=== PATIENT | male | born 1990 | race Caucasian/White ===

== ENCOUNTER 2017-03-01 10:17 | Emergency (ER) | payer OTHER ==
[~2017-03-01] VITALS: Ht 167.6 cm; Wt 60.0 kg
[2017-03-01 10:36] VITALS: BP 127/81; PULSE 108; RESP 22; TEMP 98.4; O2SAT 99
[2017-03-01] MEDS ORDERED: ADDE30TA PO (10:43)
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
[2017-03-01] MEDS ORDERED: IBUPROFEN 800 MG TAB PO ONE (11:15)
[2017-03-01] MEDS ORDERED: IBUP1TAB7 PO (11:22)
[2017-03-01 12:22] VITALS: RESP 24
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
== END 2017-03-01 12:55 | disposition home or self-care (01) ==
LOC: NEPD 10:17
DX: S62.317A Displaced fracture of base of fifth metacarpal bone, left hand, initial encounter for closed fracture (principal); F98.8 Other specified behavioral and emotional disorders with onset usually occurring in childhood and adolescence; J45.909 Unspecified asthma, uncomplicated; F41.9 Anxiety disorder, unspecified; Z79.899 Other long term (current) drug therapy; Z88.8 Allergy status to other drugs, medicaments and biological substances; X58.XXXA Exposure to other specified factors, initial encounter
CPT/HCPCS: 29125; 73130